=== PATIENT | female | born 1975 | race Caucasian/White ===

== ENCOUNTER 2020-09-23 11:24 | Outpatient (REF) | payer OTHER, SELFPAY ==
--- NOTE | ~2020-09-23 | US_ITS ---
EXAMINATION: US RETROPERITONEAL LIMITED (RENAL ONLY) CLINICAL INFORMATION: Unspecified abdominal pain. COMPARISON: X-ray abdomen 02/24/2006 (report only). TECHNIQUE: Real-time imaging of the kidneys. FINDINGS: RIGHT KIDNEY: 12.3 x 5.0 x 4.9 cm (SAG x AP x TRV). The kidney is normal in size, contour, and echogenicity. Renal cortical thickness is normal. No focal parenchymal lesions seen. There is an extrarenal pelvis. There are several echogenic stones visualized. 1. A lower pole echogenic stone measuring 1.1 x 0.8 cm. 2. Midpole stone measuring 0.2 x 0.2 cm. 3. Lower pole echogenic stone measuring 0.2 x 0.1 cm. 4. Lower pole echogenic stone measuring 0.3 x 0.3 cm. LEFT KIDNEY: 11.8 x 5.6 x 4.8 cm (SAG x AP x TRV). The kidney is normal in size, contour, and echogenicity. Renal cortical thickness is normal. No calculi or focal parenchymal lesions. No hydronephrosis. US/US renal BI IMPRESSION: Nonobstructive 4 echogenic stones in the right kidney with an extrarenal right kidney pelvis. Unremarkable left kidney.
== END 2020-09-23 11:25 | disposition home or self-care (01) ==
LOC: HO.US 11:24
PROVIDERS: PCP Internal Medicine; Visit Provider Internal Medicine
DX: R10.9 Unspecified abdominal pain (principal)
CPT/HCPCS: 76775

== ENCOUNTER 2022-10-26 09:44 | Outpatient (REF) | payer OTHER, SELFPAY ==
[2022-10-26 09:55] LABS: MANUAL DIFF FLAG NO
[2022-10-26 10:04] LABS: Basophils Absolute Auto 0.1 X10*3/uL (0.0-0.2); Basophils Percent Auto 0.7 % (0-2); Eosinophils Absolute Auto 0.4 X10*3/uL (0.0-0.4); Eosinophils Percent Auto 4.1 % (0-4); Hematocrit 39.9 % (37.0-47.0); Hemoglobin 12.9 g/dl (12.0-16.0); Imm Gran Abs Auto 0.02 X10*3/uL (0.00-0.03); Imm Gran Pct Auto 0.2 % (0.0-0.4); Lymphocytes Percent Auto 21.5 % (20-40); Mean Corpuscular HGB Conc 32.3 g/dl (31.0-35.0); Mean Corpuscular Hemoglobin 27.3 pg (27.0-33.0); Mean Corpuscular Volume 84.4 fL (80.0-98.0); Mean Platelet Volume 9.5 fL (9.4-12.3); Monocytes Absolute Auto 0.5 X10*3/uL (0.1-1.2); Monocytes Percent Auto 5.6 % (2-11); Neutrophils Absolute Auto 6.5 x10*3/uL (2.0-8.3); Neutrophils Percent Auto 67.9 % (45-73); Platelet Count 326 X10*3/uL (160-400); Red Blood Count 4.73 X10*6/uL (4.20-5.50); Red Cell Distribution Width 13.1 % (11.0-16.0); White Blood Count 9.5 X10*3/uL (4.8-10.8)
[2022-10-26 10:44] LABS: Alanine Aminotransferase 11 U/L (0-31); Albumin Level 4.4 g/dL (3.5-5.0); Alkaline Phosphatase 115 U/L (39-117); Anion Gap 13 (12-20); Aspartate Amino Transferase 15 U/L (5-31); Bilirubin Total 0.6 mg/dL (0.0-1.0); Blood Urea Nitrogen 14 mg/dL (9-16); Calcium 9.2 mg/dL (8.4-10.2); Carbon Dioxide 28 mmol/L (22-29); Chloride 104 mmol/L (96-108); Cholesterol 169 mg/dL; Estimated Glomerular Filt Rate > 60; Glucose Fasting 95 mg/dL (60-99); HDL Cholesterol 47 mg/dL; LDL Cholesterol Calculated 105 mg/dl; Potassium 4.1 mmol/L (3.3-5.1); Sodium 141 mmol/L (135-145); Total Protein 7.3 g/dL (6.5-8.0); Triglycerides 85 mg/dL
[2022-10-26 10:54] LABS: Thyroid Stimulating Hormone 1.46 uIU/mL (0.32-4.0)
== END 2022-10-26 09:45 | disposition home or self-care (01) ==
LOC: HO.LAB 09:44
PROVIDERS: PCP Internal Medicine; Visit Provider Internal Medicine
DX: D64.9 Anemia, unspecified (principal); E03.9 Hypothyroidism, unspecified; N28.9 Disorder of kidney and ureter, unspecified; E78.5 Hyperlipidemia, unspecified
CPT/HCPCS: 36415; 80053; 80061; 84443; 85025

== ENCOUNTER 2023-10-28 12:57 | Outpatient (AMB) | payer OTHER, SELFPAY ==
[2023-10-28 13:01] VITALS: BP 142/74; PULSE 75; O2SAT 94; BMI 32.9
--- NOTE | 2023-10-28 13:01 | A.OFFPC_ITS ---
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 Social Responsibility: Not Required per policy Accompanied by: Self / Same As Patient Allergies benzonatate Allergy (Unknown, Verified 10/28/23 13:01) unknown Medication List - Last Reconciled 10/28/23 by Rikki Lockwood MD albuterol sulfate 90 mcg/actuation 2 puffs PO Q4-6H PRN cetirizine (Zyrtec) 10 mg PO DAILY PRN sumatriptan succinate (Imitrex) 25 mg PO Q2-4H PRN 30 days Tobacco use date assessed: 10/28/23 Dental Screening Dental Screen Date: 10/28/23 Did you have a dental visit in the last 12 months?: Yes Did you have a dental problem in the last 6 months where you did not have access to dental care?: No Was dental information given to patient?: Patient has dentist HPI Annual exam - due for Moro/cervical screenings HPI Details mild asthma and migraine headaches; controlled PFSH Medical History (Updated 10/16/21 @ 10:20 by Rikki Lockwood MD) Obesity Surgical History History of lithotripsy Family History (Updated 10/28/23 @ 13:02 by CORA Yadav) Father No problems noted. Mother No problems noted. Maternal Grandfather Prostate cancer Paternal Grandfather Lung cancer Social History Housing: House Alcohol intake: current Alcohol intake frequency: a few times a week Patient Tobacco Use Status: Never used Tobacco Tobacco use type: Cigarette e-Cigarette/Vaping Use: Never Used Second Hand Smoke Exposure: No service: No Current occupational status: employed Cognitive needs: No Hearing needs: No Vision needs: No Questionnaire PHQ-9 Over the last 2 weeks, how often have you been bothered by any of the following problems? 1. Little interest or pleasure in doing things: not at all 2. Feeling down, depressed, or hopeless: not at all 3. Trouble falling or staying asleep, or sleeping too much: not at all 4. Feeling tired or having little energy: not at all 5. Poor appetite or overeating: not at all 6. Feeling bad about yourself - or that you are a failure or have let yourself or your family down: not at all 7. Trouble concentrating on things, such as reading the newspaper or watching television: not at all 8. Moving or speaking so slowly that other people could have noticed. Or the opposite - being so fidgety or restless that you have been moving around a lot more than usual: not at all 9. Thoughts that you would be better off or of hurting yourself in some way: not at all Total score: 0 Depression Screening Interpretation: Negative Depression Screening Done: Yes 34193 - PHQ-9 Billing: Yes Source: Developed by Drs. Fer Veras, Radha Ram, Luis Daniel Lawrence and colleagues, with an educational radha from [employer]. Thrive Questionnaire Date Thrive assessed: 10/28/23 I am a: Patient What is your living situation today?: I have a steady place to live Within the past 12 months, did the food you bought not last and you didn't have the money to get more?: Never true Within the past 12 months, did you worry whether your food would run out before you got money to buy more?: Never true Do you have trouble paying for medicines?: No Do you have trouble getting transportation to medical appointments?: No Do you have trouble paying your heating and electricity bill?: No Do you have trouble taking care of your child, family member or friend?: No Do you have trouble with day-to-day activities such as bathing, preparing meals, shopping, managing finances, etc.?: No Are you currently unemployed and looking for a job?: No Are you interested in more education?: No Please select the resources that you would like help with: None THRIVE Score: 0 AUDIT C Alcohol Use Questionnaire (AUDIT-C) 1. How often do you have a drink containing alcohol?: 2-4 times a month 2. How many drinks containing alcohol do you have on a typical day when you are drinking?: 1 or 2 3. How often do you have six or more drinks on one occasion?: Never Total Score: 2 Score Reviewed/Action Taken: Yes RICHIE-7 AMB Questionnaire RICHIE-7 Date RICHIE - 7 assessed: 10/28/23 Feeling nervous, anxious, or on edge: 0 = Not at all Not being able to stop or control worryin = Not at all Worrying too much about different things: 0 = Not at all Trouble relaxin = Not at all Being so restless that it is hard to sit still: 0 = Not at all Becoming easily annoyed or irritable: 0 = Not at all Feeling afraid as if something awful might happen: 0 = Not at all Total RICHIE-7 score (0-4 normal; 5-9 mild; 10-14 moderate; 15-21 severe): 0 Source: Developed by Drs. Fer Veras, Radha aRm, Luis Daniel Lawrence and colleagues, with an educational radha from [employer]. RICHIE-7 Assessment Billing RICHIE-7 Assessment Tool: RICHIE-7 Assessment 91232 Review of Systems Const Denies chills, Denies fatigue, Denies headache(s) and Denies weight loss Eyes Denies change in vision, Denies diplopia and Denies eye pain ENT Denies vertigo, Denies dizziness, Denies headache(s) and Denies nasal discharge Card Denies chest pain, Denies rapid heart rate and Denies dyspnea on exertion Resp Denies chest congestion, Denies cough, Denies pain with cough and Denies dyspnea on exertion GI Denies abdominal pain, Denies hematochezia and Denies change in bowel habits Musc Denies myalgias, Denies arthralgias and Denies joint swelling Skin/Breast Denies lesions and Denies unusual bruising Neuro Denies vertigo, Denies dizziness, Denies headache(s) and Denies focal weakness Endo Denies fatigue Physical exam (Primary Care) Vital Signs: Last Vital Signs Pulse 75 10/28/23 13:01 BP 142/74 H 10/28/23 13:01 Pulse Ox 94 10/28/23 13:01 Oxygen Delivery Method Room Air 10/28/23 13:01 BMI result Body Mass Index 32.9 Tobacco/Smoking Status: Tobacco use Status Tobacco use date assessed 10/28/23 10/28/23 13:06 Patient Tobacco Use Status Never used Tobacco 10/28/23 13:06 Tobacco use type Cigarette 10/28/23 13:06 e-Cigarette/Vaping Use Never Used 10/28/23 13:06 PHQ-9: PHQ-9 Score PHQ-9: Total score 0 10/28/23 13:06 Depression Screening Interpretation: Negative Thrive Assessment: Date of Thrive Assessment Date Thrive assessed 10/28/23 10/28/23 13:06 Const General: cooperative, healthy appearing and no acute distress Orientation/consciousness: oriented to person, oriented to place and oriented to time HENMT Head: Yes normal to inspection, Yes normocephalic and Yes atraumatic Mouth: Normal oral and palatal mucosa present and tongue normal Throat: Yes posterior oropharynx normal and Yes uvula midline Eyes General: appearance normal, both eyes and all related structures Neck Neck: Yes normal visual inspection, Yes full ROM and Yes no lymphadenopathy Thyroid: Thyroid normal Carotids: normal carotid upstroke Chest Chest palpation & inspection: normal inspection of the chest Resp Effort & Inspection: normal respiratory effort and able to speak in complete sentences Auscultation: clear to auscultation bilaterally Cardio Jugular venous distension: no JVD Palpation: normal PMI Rate: regular rate Rhythm: regular rhythm Heart sounds: S1 normal heart sound present and S2 normal heart sound present GI Inspection: Yes normal to inspection Palpation (GI): Soft to palpation and No hepatosplenomegaly present Auscultation: normal bowel sounds General: Yes no CVA tenderness Back/Spine/Pelvis Back: no CVA tenderness Skin General skin exam: no rashes or lesions noted Neuro General: oriented to person, oriented to place and oriented to time Extrem General: Yes normal to inspection and Yes full ROM Assessment and Plan Assessment & Plan (1) Physical exam: Code(s): Z00.00 - Encounter for general adult medical examination without abnormal findings Plan: labs; refuses colooscopy (2) Migraines: Code(s): G43.909 - Migraine, unspecified, not intractable, without status migrainosus Qualifiers: Migraine type: without aura Status migrainosus presence: without status migrainosus Intractability: not intractable Qualified Code(s): G43.009 - Migraine without aura, not intractable, without status migrainosus Plan: stable; same rx (3) Asthma: Code(s): J45.909 - Unspecified asthma, uncomplicated Plan: stable; same rx Orders: Orders Lipid Panel Today E78.5 - Hyperlipidemia, unspecified Complete Blood Count Auto Diff Today D64.9 - Anemia, unspecified Thyroid Stimulating Hormone Today E03.9 - Hypothyroidism, unspecified Comprehensive [place]. Panel Fast Today N28.9 - Disorder of kidney and ureter, unspecified Medications: Refilled albuterol sulfate 90 mcg/actuation 2 puffs PO Q4-6H PRN 8.5 grams 0RF for wheezing Coding Level of Care Code Est Pt Prev Care 40-64y(84699) Diagnoses Physical exam Z00.00 Migraine without aura and without status migrainosus, not intractable G43.009 Migraine type: without aura Status migrainosus presence: without status migrainosus Intractability: not intractable Asthma J45.909 Additional Codes RICHIE-7 Assessment Billing - RICHIE-7 Assessment Tool: RICHIE-7 Assessment 25792 ([id number])
== END 2023-10-28 13:33 | disposition home or self-care (01) ==
PROVIDERS: Visit Provider Internal Medicine
DX: Z00.00 Encounter for general adult medical examination without abnormal findings (principal); G43.009 Migraine without aura, not intractable, without status migrainosus; J45.909 Unspecified asthma, uncomplicated
CPT/HCPCS: 99396

== ENCOUNTER 2024-10-30 14:27 | Outpatient (AMB) | payer OTHER, SELFPAY ==
[2024-10-30 14:37] VITALS: BP 162/60; PULSE 74; RESP 16; TEMP 36.9; O2SAT 98; BMI 33.0
--- NOTE | 2024-10-30 14:37 | A.OFFPC_ITS ---
Vital Signs 10/30/24 14:37 Height 5 ft 2 in Weight 180 lb 6.4 oz BMI 33.0 BP 162/60 H Blood Pressure Location Lt brachial Position Sitting Respiration 16 Pulse 74 Pulse Source Pulse Oximeter Temp 98.5 F Temp Source Oral Pulse Oximetry (%) 98 Oxygen Delivery Method Room Air Intake Visit Reasons: TORIBIO DR Lockwood/[employer] As[employer]er Required: No Accompanied by: Self / Same As Patient Allergies benzonatate Allergy (Unknown, Verified 10/30/24 14:55) unknown Medication List - Last Reconciled 10/30/24 by DMITRIY Gimenez albuterol sulfate 90 mcg/actuation 2 puffs PO Q4-6H PRN cetirizine (Zyrtec) 10 mg PO DAILY PRN sumatriptan succinate (Imitrex) 25 mg PO Q2-4H PRN 30 days Tobacco use date assessed: 10/30/24 Dental Screening Dental Screen Date: 10/30/24 Did you have a dental visit in the last 12 months?: Yes Did you have a dental problem in the last 6 months where you did not have access to dental care?: No Was dental information given to patient?: Patient has dentist HPI TORIBIO DR Lockwood/LILY HPI Details The patient is a 49-year-old female with significant past medical history of asthma, obesity, high blood pressure and migraines The patient is presenting for transition of care from Dr. Lockwood who retired Patient reports that her migraines are triggered by hormone fluctuation, her period weeks are rough and any changes in the weather as well The patient blood pressure was elevated in office. Per patient, her blood pressure is all over the place and goes from high to low intermittently. The patient also reports that she has a strong family history of heart disease She reports that her dad had a heart attack that he has survived, before turning 51 years old The patient is denying shortness of breath, chest pain, heart palpitation or dizziness Discussed with the patient-due to her strong family history of heart disease, she should have a stress test done. The patient contemplated for a while and then finally said yes [facility] Medical History (Updated 11/04/24 @ 22:51 by DMITRIY Gimenez) Family history of heart disease Asthma Migraines Obesity Surgical History History of lithotripsy Family History Father No problems noted. Mother No problems noted. Maternal Grandfather Prostate cancer Paternal Grandfather Lung cancer Social History Housing: House Alcohol intake: current Alcohol intake frequency: a few times a week Patient Tobacco Use Status: Never used Tobacco Tobacco use type: Cigarette e-Cigarette/Vaping Use: Never Used Second Hand Smoke Exposure: No service: No Current occupational status: employed Cognitive needs: No Hearing needs: No Vision needs: Yes (Contact lenses) Questionnaire PHQ-9 Over the last 2 weeks, how often have you been bothered by any of the following problems? 1. Little interest or pleasure in doing things: not at all 2. Feeling down, depressed, or hopeless: not at all 3. Trouble falling or staying asleep, or sleeping too much: not at all 4. Feeling tired or having little energy: not at all 5. Poor appetite or overeating: not at all 6. Feeling bad about yourself - or that you are a failure or have let yourself or your family down: not at all 7. Trouble concentrating on things, such as reading the newspaper or watching television: not at all 8. Moving or speaking so slowly that other people could have noticed. Or the opposite - being so fidgety or restless that you have been moving around a lot more than usual: not at all 9. Thoughts that you would be better off or of hurting yourself in some way: not at all Total score: 0 Depression Screening Interpretation: Negative Depression Screening Done: Yes 43946 - PHQ-9 Billing: Yes Source: Developed by Drs. Fer Veras, Radha Ram, Luis Daniel Lawrence and colleagues, with an educational radha from [employer]. Thrive Questionnaire Date Thrive assessed: 10/30/24 I am a: Patient What is your living situation today?: I have a steady place to live Within the past 12 months, did the food you bought not last and you didn't have the money to get more?: Never true Within the past 12 months, did you worry whether your food would run out before you got money to buy more?: Never true Do you have trouble paying for medicines?: No Do you have trouble getting transportation to medical appointments?: No Do you have trouble paying your heating and electricity bill?: No Do you have trouble taking care of your child, family member or friend?: No Do you have trouble with day-to-day activities such as bathing, preparing meals, shopping, managing finances, etc.?: No Are you currently unemployed and looking for a job?: No Are you interested in more education?: No Please select the resources that you would like help with: None Currently or been in a relationship where the following occur: No concerns reported THRIVE Score: 0 AUDIT C Alcohol Use Questionnaire (AUDIT-C) 1. How often do you have a drink containing alcohol?: Monthly or less 2. How many drinks containing alcohol do you have on a typical day when you are drinking?: 1 or 2 3. How often do you have six or more drinks on one occasion?: Never Total Score: 1 Score Reviewed/Action Taken: Yes RICHIE-7 AMB Questionnaire RICHIE-7 Date RICHIE - 7 assessed: 10/30/24 Feeling nervous, anxious, or on edge: 0 = Not at all Not being able to stop or control worryin = Not at all Worrying too much about different things: 0 = Not at all Trouble relaxin = Not at all Being so restless that it is hard to sit still: 0 = Not at all Becoming easily annoyed or irritable: 0 = Not at all Feeling afraid as if something awful might happen: 0 = Not at all Total RICHIE-7 score (0-4 normal; 5-9 mild; 10-14 moderate; 15-21 severe): 0 Source: Developed by Drs. Fer Veras, Radha Ram, Luis Daniel Lawrence and colleagues, with an educational radha from [employer]. RICHIE-7 Assessment Billing RICHIE-7 Assessment Tool: RICHIE-7 Assessment 33652 Review of Systems Const Reports headache(s) (Intermittent migraines-hormonal) Eyes Denies loss of vision ENT Denies vertigo, Denies dizziness, Reports headache(s) (Intermittent migraines- hormonal) and Denies sore throat Card Denies chest pain, Denies leg edema and Denies lightheadedness Resp Denies cough, Denies hemoptysis and Denies wheezing GI Denies abdominal pain, Denies melena, Denies constipation, Denies diarrhea and Denies vomiting Neuro Denies Abnormal speech present, Denies vertigo, Denies dizziness, Reports headache(s) (Intermittent migraines-hormonal) and Denies loss of vision Aller/Immun Denies wheezing Physical exam (Primary Care) Vital Signs: Last Vital Signs Temp 98.5 F 10/30/24 14:37 Pulse 74 10/30/24 14:37 Resp 16 10/30/24 14:37 BP 162/60 H 10/30/24 14:37 Pulse Ox 98 10/30/24 14:37 Oxygen Delivery Method Room Air 10/30/24 14:37 BMI result Body Mass Index 33.0 Tobacco/Smoking Status: Tobacco use Status Tobacco use date assessed 10/30/24 10/30/24 14:49 Patient Tobacco Use Status Never used Tobacco 10/30/24 14:49 Tobacco use type Cigarette 10/30/24 14:49 e-Cigarette/Vaping Use Never Used 10/30/24 14:49 PHQ-9: PHQ-9 Score PHQ-9: Total score 0 10/30/24 17:37 Depression Screening Interpretation: Negative Thrive Assessment: Date of Thrive Assessment Date Thrive assessed 10/30/24 10/30/24 14:49 Currently or been in a relationship where the following occur: No concerns reported Const General: healthy appearing, no acute distress, alert and awake Nutritional Appearance: well nourished Orientation/consciousness: oriented to person, oriented to place and oriented to time HENMT Ears: external ears normal General nose exam: Normal external nose present Eyes Conjunctivae: conjunctivae normal Sclerae: sclerae normal Pupils: Equal, round and reactive pupils present Neck Neck: Yes no lymphadenopathy and Yes no JVD Thyroid: Thyroid normal Carotids: no bruits Resp Effort & Inspection: normal respiratory effort and not tachypneic Auscultation: no crackles, no rales, no rhonchi and no wheezes Cardio Rate: regular rate Rhythm: regular rhythm Heart sounds: no murmurs and normal S1 and S2 GI Palpation (GI): Soft to palpation, nontender, no hepatomegaly and no splenomegaly Auscultation: normal bowel sounds Neuro General: oriented to person, oriented to place, oriented to time and CN's II-XI intact bilaterally Cranial nerves: Yes Equal, round and reactive pupils present Speech: No Abnormal speech present Gait exam (Neuro): Normal gait present Motor exam (neuro): no tremor noted Extrem Right upper extremity: full ROM Left upper extremity: full ROM Right lower extremity: full ROM; no edema Left lower extremity: full ROM; no edema Psych Mental Status: mental status grossly normal Speech and movement: Normal speech and movement present Affect: normal affect Attitude: cooperative Thought process: Normal thought process present Coding Level of Care Code Est Pt Level 3 (57772) Diagnoses Hypertension, unspecified type I10 Hypertension type: unspecified Migraine without aura and without status migrainosus, not intractable G43.009 Migraine type: without aura Status migrainosus presence: without status migrainosus Intractability: not intractable Family history of heart disease Z82.49 Additional Codes RICHIE-7 Assessment Billing - RICHIE-7 Assessment Tool: RICHIE-7 Assessment 30610 ([id number]) PHQ-9 - 74729 - PHQ-9 Billing: Yes ([id number]) Time Spent (min) 29 Assessment & Plan Assessment & Plan (1) High blood pressure: Code(s): I10 - Essential (primary) hypertension Category: Medical Qualifiers: Hypertension type: unspecified Qualified Code(s): I10 - Essential (primary) hypertension Plan: Patient blood pressure 162/60, last year it was 142/74. Rechecked blood pressure remains elevated. Patient reports that her blood pressure fluctuates from high to low intermittently. Lisinopril 5 mg daily started. Encouraged the patient to monitor blood pressure in contact the office for any concerns. Discussed consuming a low-sodium diet. Patient to return in 6 weeks for evaluat ion (2) Migraines: Code(s): G43.909 - Migraine, unspecified, not intractable, without status migrainosus Category: Medical Qualifiers: Migraine type: without aura Status migrainosus presence: without status migrainosus Intractability: not intractable Qualified Code(s): G43.009 - Migraine without aura, not intractable, without status migrainosus Plan: Patient reports that her headaches are purely hormonal. Fluctuates with the weather and during her menses. Continue sumatriptan succinate 25 mg 2-4 hours p.r.n. as needed. Maintain adequate fluid hydration. Discussed with the patient about starting magnesium oxide 400 mg at bedtime and vitamin B2 400 mg daily OTC (3) Family history of heart disease: Code(s): Z82.49 - Family history of ischemic heart disease and other diseases of the circulatory system Category: Medical Plan: We will order a stress test Orders: Orders Complete Blood Count Auto Diff 10/30/24. - Encounter for general adult medical examination without abnormal findings Comprehensive [place]. Panel Fast 10/30/24 - Encounter for general adult medical examination without abnormal findings Lipid Panel 10/30/24. - Encounter for general adult medical examination without abnormal findings CA stress test Today I10 - Essential (primary) hypertension, Z82.49 - Family history of ischemic heart disease and other diseases of the circulatory system Vitamin D 25-OH Total 10/30/24 - Encounter for general adult medical examination without abnormal findings UA CC w/rflx Micro + Cult 10/30/24 - Encounter for general adult medical examination without abnormal findings TSH reflex Free T4 10/30/24 - Encounter for general adult medical examination without abnormal findings Medications: New lisinopril 5 mg PO DAILY 30 tabs 2RF I10 - Essential (primary) hypertension
== END 2024-10-30 15:28 | disposition home or self-care (01) ==
DX: I10 Essential (primary) hypertension (principal); G43.009 Migraine without aura, not intractable, without status migrainosus; Z82.49 Family history of ischemic heart disease and other diseases of the circulatory system

== ENCOUNTER → 2024-10-30 14:27 | Outpatient (BNVA) | payer OTHER, SELFPAY | DX: I10 Essential (primary) hypertension (principal); G43.009 Migraine without aura, not intractable, without status migrainosus; Z82.49 Family history of ischemic heart disease and other diseases of the circulatory system; Z79.899 Other long term (current) drug therapy | CPT/HCPCS: 96127 ==

== ENCOUNTER 2024-11-21 08:43 | Outpatient (REF) | payer OTHER, SELFPAY ==
[2024-11-21 09:01] LABS: MANUAL DIFF FLAG NO
[2024-11-21 09:36] LABS: Basophils Absolute Auto 0.1 X10*3/uL (0.0-0.2); Basophils Percent Auto 0.7 % (0-2); Eosinophils Absolute Auto 0.5 X10*3/uL (0.0-0.4); Eosinophils Percent Auto 4.8 % (0-4); Hematocrit 41.3 % (37.0-47.0); Hemoglobin 13.4 g/dl (12.0-16.0); Imm Gran Abs Auto 0.03 X10*3/uL (0.00-0.03); Imm Gran Pct Auto 0.3 % (0.0-0.4); Lymphocytes Absolute Auto 2.6 X10*3/uL (1.2-4.9); Lymphocytes Percent Auto 26.9 % (20-40); Mean Corpuscular HGB Conc 32.4 g/dl (31.0-35.0); Mean Corpuscular Hemoglobin 27.1 pg (27.0-33.0); Mean Corpuscular Volume 83.6 fL (80.0-98.0); Mean Platelet Volume 9.9 fL (9.4-12.3); Monocytes Absolute Auto 0.7 X10*3/uL (0.1-1.2); Monocytes Percent Auto 6.9 % (2-11); Neutrophils Absolute Auto 5.8 x10*3/uL (2.0-8.3); Neutrophils Percent Auto 60.4 % (45-73); Platelet Count 319 X10*3/uL (160-400); Red Blood Count 4.94 X10*6/uL (4.20-5.50); Red Cell Distribution Width 13.7 % (11.0-16.0); White Blood Count 9.5 X10*3/uL (4.8-10.8)
[2024-11-21 09:39] LABS: Appearance Urine Clear; Color Urine Yellow; Glucose Urine UA Negative (Negative); Leukocyte Esterase Urine Trace (Negative); Nitrite Urine Negative (Negative); UMIC TRIGGER UACC YES; Urine Blood Negative (Negative); Urine Ketones 15 mg/dL (Negative); Urine Protein Trace mg/dL (Neg-Trace)
[2024-11-21 09:42] LABS: Bacteria Urine None Seen (None Seen); Hyaline Casts Urine 0-2 /LPF (0-2); RBC Urine 0-2 /HPF (0-2); Squamous Epithelial Cell Urine 0-2 /HPF (0-2); WBC Urine 0-5 /HPF (0-5)
[2024-11-21 10:34] LABS: Alanine Aminotransferase 21 U/L (0-31); Albumin Level 4.3 g/dL (3.5-5.0); Alkaline Phosphatase 98 U/L (39-117); Anion Gap 13 (12-20); Aspartate Amino Transferase 21 U/L (5-31); Bilirubin Total 0.5 mg/dL (0.0-1.0); Blood Urea Nitrogen 14 mg/dL (9-16); Calcium 9.5 mg/dL (8.4-10.2); Carbon Dioxide 26 mmol/L (22-29); Chloride 104 mmol/L (96-108); Cholesterol 169 mg/dL (<200); Estimated Glomerular Filt Rate > 60; Glucose Fasting 97 mg/dL (60-99); HDL Cholesterol 59 mg/dL (>40); LDL Cholesterol Calculated 94 mg/dL (<100); Potassium 3.8 mmol/L (3.3-5.1); Sodium 139 mmol/L (135-145); Total Protein 7.5 g/dL (6.5-8.0); Triglycerides 81 mg/dL (<150)
[2024-11-21 10:37] LABS: TSH reflex Free T4 1.06 uIU/mL (0.32-4.0); Vitamin D 25-OH Total 29.5 ng/mL (>30)
== END 2024-11-21 08:44 | disposition home or self-care (01) ==
LOC: HO.LAB 08:43
DX: Z00.00 Encounter for general adult medical examination without abnormal findings (principal)
CPT/HCPCS: 36415; 80053; 80061; 81001; 82306; 84443; 85025

== ENCOUNTER → 2024-11-22 09:29 | Outpatient (REF) | payer OTHER, SELFPAY ==
--- NOTE | 2024-11-22 09:31 | CA_ITS ---
Acquisition Time: 2024-11-22 09:38:43 Total Exercise Time: 00:05:39 Test Indications: HTN, CAD Medications: SEE H&P Protocol: DANIEL Max HR: 155 BPM 90% of Pred: 172 BPM Max BP: 190/98 mmHG Max Work Load: 7.0 METS Exercise stress test with exercise 5 mins 39 secs of Daniel Protocol, achieving 88% MPHr, with reports of mild SOB, no chest pain, without any arrythmias, with normotensive response to exercise- baseline BP 130/108. Without EKG changes meeting criteria for ischemia. In recovery, pt's breathing returned to baseline. Test reviewed with Dr. Sethi. PS- Pt states her BP at home is still elevated on Lisinopril. Referred By: Alexandr Zhong Electronically Signed By: Jason Shahid
== END ==
LOC: HO.CARD 09:29
DX: I10 Essential (primary) hypertension (principal); Z82.49 Family history of ischemic heart disease and other diseases of the circulatory system
CPT/HCPCS: 93017

== ENCOUNTER → 2024-11-22 09:31 | Outpatient (BNV) | payer OTHER, SELFPAY | DX: R06.02 Shortness of breath (principal) | CPT/HCPCS: 93016; 93018 ==

== ENCOUNTER 2024-12-18 11:37 | Outpatient (AMB) | payer OTHER, SELFPAY ==
[2024-12-18 11:41] VITALS: BP 124/80; PULSE 83; O2SAT 97; BMI 33.2
--- NOTE | 2024-12-18 11:41 | A.OFFPC_ITS ---
Vital Signs 12/18/24 11:41 Height 5 ft 2 in Weight 181 lb 6 oz BMI 33.2 BP 124/80 Blood Pressure Location Lt brachial Position Sitting Pulse 83 Pulse Source Pulse Oximeter Pulse Oximetry (%) 97 Oxygen Delivery Method Room Air Intake Visit Reasons: high blood pressure - see comments Company Driver Required: No Accompanied by: Self / Same As Patient Allergies benzonatate Allergy (Unknown, Verified 12/18/24 12:16) unknown Medication List - Last Reconciled 12/18/24 by DMITRIY Gimenez albuterol sulfate 90 mcg/actuation 2 puffs PO Q4-6H PRN cetirizine (Zyrtec) 10 mg PO DAILY PRN lisinopril 5 mg PO DAILY sumatriptan succinate (Imitrex) 25 mg PO Q2-4H PRN 30 days Tobacco use date assessed: 12/18/24 Dental Screening Dental Screen Date: 12/18/24 Did you have a dental visit in the last 12 months?: Yes Did you have a dental problem in the last 6 months where you did not have access to dental care?: No Was dental information given to patient?: Patient has dentist HPI high blood pressure - see comments HPI Details The patient is a 49-year-old female presenting with ear congestion and hypertension management needs. She reports previous successful control of blood pressure with Lisinopril 10 mg dosage. Originally, the patient was started on lisinopril 5 mg with insufficient effect. The patient is requesting to get her ears checked because she is having post-flight ear discomfort, which is not uncommon for her. She has taken he usual regimen of Afrin for 3 days without any relief. Mild ache and crackling are noted in the right ear upon yawning, with a historical susceptibility to ear infections under similar circumstances. [facility] Medical History (Updated 12/19/24 @ 00:33 by DMITRIY Gimenez) Family history of heart disease Asthma Migraines Obesity Surgical History History of lithotripsy Family History Father No problems noted. Mother No problems noted. Maternal Grandfather Prostate cancer Paternal Grandfather Lung cancer Social History (Reviewed 12/19/24 @ 00:26 by JUAN LUIS Gimenez Housing: House Alcohol intake: current Alcohol intake frequency: a few times a week Patient Tobacco Use Status: Never used Tobacco Tobacco use type: Cigarette e-Cigarette/Vaping Use: Never Used Second Hand Smoke Exposure: No service: No Current occupational status: employed Cognitive needs: No Hearing needs: No Vision needs: Yes (Contact lenses) Questionnaire PHQ-9 Over the last 2 weeks, how often have you been bothered by any of the following problems? 1. Little interest or pleasure in doing things: not at all 2. Feeling down, depressed, or hopeless: not at all 3. Trouble falling or staying asleep, or sleeping too much: not at all 4. Feeling tired or having little energy: not at all 5. Poor appetite or overeating: not at all 6. Feeling bad about yourself - or that you are a failure or have let yourself or your family down: not at all 7. Trouble concentrating on things, such as reading the newspaper or watching television: not at all 8. Moving or speaking so slowly that other people could have noticed. Or the opposite - being so fidgety or restless that you have been moving around a lot more than usual: not at all 9. Thoughts that you would be better off or of hurting yourself in some way: not at all Total score: 0 Source: Developed by Drs. Fer Veras, Radha Ram, Luis Daniel Lawrence and colleagues, with an educational radha from [employer]. Thrive Questionnaire Date Thrive assessed: 12/18/24 I am a: Patient What is your living situation today?: I have a steady place to live Within the past 12 months, did the food you bought not last and you didn't have the money to get more?: Never true Within the past 12 months, did you worry whether your food would run out before you got money to buy more?: Never true Do you have trouble paying for medicines?: No Do you have trouble getting transportation to medical appointments?: No Do you have trouble paying your heating and electricity bill?: No Do you have trouble taking care of your child, family member or friend?: No Do you have trouble with day-to-day activities such as bathing, preparing meals, shopping, managing finances, etc.?: No Are you currently unemployed and looking for a job?: No Are you interested in more education?: No Please select the resources that you would like help with: None Currently or been in a relationship where the following occur: No concerns reported THRIVE Score: 0 AUDIT C Alcohol Use Questionnaire (AUDIT-C) 1. How often do you have a drink containing alcohol?: 2-4 times a month 2. How many drinks containing alcohol do you have on a typical day when you are drinking?: 1 or 2 3. How often do you have six or more drinks on one occasion?: Less than monthly Total Score: 3 RICHIE-7 AMB Questionnaire RICHIE-7 Date RICHIE - 7 assessed: 12/18/24 Feeling nervous, anxious, or on edge: 0 = Not at all Not being able to stop or control worryin = Not at all Worrying too much about different things: 0 = Not at all Trouble relaxin = Not at all Being so restless that it is hard to sit still: 0 = Not at all Becoming easily annoyed or irritable: 0 = Not at all Feeling afraid as if something awful might happen: 0 = Not at all Total RICHIE-7 score (0-4 normal; 5-9 mild; 10-14 moderate; 15-21 severe): 0 Source: Developed by Drs. Fer Veras, Radha Ram, Luis Daniel Lawrence and colleagues, with an educational radha from [employer]. Review of Systems Const Denies headache(s) Eyes Denies loss of vision ENT Denies vertigo, Denies dizziness, Reports otalgia (mild especially in right), Denies headache(s), Denies sore throat and Reports other (Increased pressure in ears with popping sounds, mostly right) Card Denies chest pain, Denies leg edema and Denies lightheadedness Resp Denies cough, Denies hemoptysis and Denies wheezing GI Denies abdominal pain, Denies melena, Denies constipation, Denies diarrhea and Denies vomiting Denies urinary frequency, Denies dysuria and Denies urinary urgency Neuro Denies Abnormal speech present, Denies vertigo, Denies dizziness, Denies headache(s) and Denies loss of vision Rafa/Lymph Denies easy bleeding and Denies easy bruising Aller/Immun Denies wheezing Physical exam (Primary Care) Vital Signs: Last Vital Signs Pulse 83 12/18/24 11:41 BP 124/80 12/18/24 11:41 Pulse Ox 97 12/18/24 11:41 Oxygen Delivery Method Room Air 12/18/24 11:41 BMI result Body Mass Index 33.2 Tobacco/Smoking Status: Tobacco use Status Tobacco use date assessed 12/18/24 12/18/24 11:46 Patient Tobacco Use Status Never used Tobacco 12/18/24 11:46 Tobacco use type Cigarette 12/18/24 11:46 e-Cigarette/Vaping Use Never Used 12/18/24 11:46 PHQ-9: PHQ-9 Score PHQ-9: Total score 0 12/19/24 00:21 Thrive Assessment: Date of Thrive Assessment Date Thrive assessed 12/18/24 12/18/24 11:46 Currently or been in a relationship where the following occur: No concerns reported Const General: healthy appearing, no acute distress, alert and awake Nutritional Appearance: well nourished Orientation/consciousness: oriented to person, oriented to place and oriented to time HENMT Ears: TM abnormal bulging, dull on the right (scant amount of dried up blood), on the left (left with dried up blood) and bilateral and with loss of landmarks General nose exam: Normal nasal mucous membranes and turbinates present Eyes Conjunctivae: conjunctivae normal Sclerae: sclerae normal Neck Neck: Yes no lymphadenopathy and Yes no JVD Thyroid: Thyroid normal Carotids: no bruits Resp Effort & Inspection: normal respiratory effort and not tachypneic Auscultation: no crackles, no rales, no rhonchi and no wheezes Cardio Rate: regular rate Rhythm: regular rhythm Heart sounds: no murmurs and normal S1 and S2 GI Palpation (GI): Soft to palpation, nontender, no hepatomegaly and no splenomegaly Auscultation: normal bowel sounds Neuro General: oriented to person, oriented to place and oriented to time Speech: No Abnormal speech present Gait exam (Neuro): Normal gait present Motor exam (neuro): no tremor noted Extrem Right upper extremity: full ROM Left upper extremity: full ROM Right lower extremity: full ROM; no edema Left lower extremity: full ROM; no edema Results Reviewed Results Reviewed: Laboratory Tests 11/21/24 11/21/24 08:52 09:00 WBC 9.5 RBC 4.94 Hgb 13.4 Hct 41.3 MCV 83.6 MCH 27.1 MCHC 32.4 RDW 13.7 Plt Count 319 Sodium 139 Potassium 3.8 Chloride 104 Carbon Dioxide 26 Anion Gap 13 BUN 14 Creatinine 0.69 Estimated GFR > 60 Fasting Glucose 97 Calcium 9.5 Total Bilirubin 0.5 AST 21 ALT 21 Alkaline Phosphatase 98 Total Protein 7.5 Albumin 4.3 Triglycerides 81 Cholesterol 169 LDL Cholesterol, Calc 94 HDL Cholesterol 59 25-OH Vitamin D Total 29.5 L TSH 1.06 Urine Color Yellow Urine Appearance Clear Urine pH 6.0 Ur Specific [place] 1.020 Urine Protein Trace Urine Glucose (UA) Negative Urine Ketones 15 Urine Blood Negative Urine Nitrite Negative Ur Leukocyte Esterase Trace H Urine RBC 0-2 Urine WBC 0-5 Ur Squamous Epith Cells 0-2 Urine Bacteria None Seen Hyaline Casts 0-2 Coding Level of Care Code Est Pt Level 3 (69619) Diagnoses Acute otitis media, unspecified otitis media type H66.90 Chronicity: acute Otitis media type: unspecified Hypertension, unspecified type I10 Hypertension type: unspecified Time Spent (min) 32 Assessment & Plan Assessment & Plan (1) Otitis media: Code(s): H66.90 - Otitis media, unspecified, unspecified ear Category: Medical Qualifiers: Chronicity: acute Otitis media type: unspecified Qualified Code(s): H66.90 - Otitis media, unspecified, unspecified ear Plan: Augmentin 875-125 mg 1 tab b.i.d. x7 days ordered (2) High blood pressure: Code(s): I10 - Essential (primary) hypertension Category: Medical Qualifiers: Hypertension type: unspecified Qualified Code(s): I10 - Essential (primary) hypertension Plan: Blood pressure 124/80. Continue lisinopril 10 mg daily Reinforced a low-salt diet and activity as tolerated Medications: New lisinopril 10 mg PO DAILY 90 tabs 3RF amoxicillin-pot clavulanate 875-125 mg 1 tab PO BID 14 tabs 0RF 7 days H66.90 - Otitis media, unspecified, unspecified ear Discontinued lisinopril Discontinued Reason: Doctor's Order 5 mg PO DAILY 30 tabs 2RF I10 - Essential (primary) hypertension
== END 2024-12-18 12:39 | disposition home or self-care (01) ==
LOC: HO.HMCH 11:38
DX: H66.90 Otitis media, unspecified, unspecified ear (principal); I10 Essential (primary) hypertension

== ENCOUNTER 2025-04-22 11:00 | Outpatient (AMB) | payer OTHER, SELFPAY ==
[2025-04-22 11:05] VITALS: BP 134/82; PULSE 76; RESP 18; TEMP 36.3; O2SAT 96; BMI 32.8
--- NOTE | 2025-04-22 11:05 | MHC.OFFVIS ---
Vital Signs 04/22/25 11:05 Height 5 ft 2 in Weight 179 lb 4 oz BMI 32.8 BP 134/82 Blood Pressure Location Lt brachial Position Sitting Respiration 18 Pulse 76 Pulse Source Pulse Oximeter Temp 97.3 F Temp Source Temporal Artery Scan Pulse Oximetry (%) 96 Oxygen Delivery Method Room Air Intake Visit Reasons: Hypertension Sail Cutter Required: No Accompanied by: Self / Same As Patient Allergies benzonatate Allergy (Unknown, Verified 04/22/25 11:22) unknown Medication List - Last Reconciled 04/22/25 by DMITRIY Gimenez albuterol sulfate 90 mcg/actuation 2 puffs PO Q4-6H PRN cetirizine (Zyrtec) 10 mg PO DAILY PRN lisinopril 10 mg PO DAILY sumatriptan succinate (Imitrex) 25 mg PO Q2-4H PRN 30 days HPI HPI Hypertension: Details: The patient is a 50-year-old female presenting for follow appt for elevated blood pressure and headaches. The patient has a history of fluctuating blood pressure readings, initially recorded at 162/60 mmHg during her first visit. Lisinopril was increased to 10mg. Subsequent readings showed improvement to 124/80 mmHg, but recent measurements have increased to 140/80 mmHg, but dropped to 134/82 when rechecked. The patient is currently on antihypertensive medication and adheres to her treatment regimen. The patient reports experiencing headaches, which she describes as being consistent with her usual pattern. She has not reported any significant changes in the frequency or severity of these headaches. [facility] Medical History Family history of heart disease Asthma Migraines Obesity Surgical History History of lithotripsy Family History Father No problems noted. Mother No problems noted. Maternal Grandfather Prostate cancer Paternal Grandfather Lung cancer Social History Housing: House Alcohol intake: current Alcohol intake frequency: a few times a week Patient Tobacco Use Status: Never used Tobacco Tobacco use type: Cigarette e-Cigarette/Vaping Use: Never Used Second Hand Smoke Exposure: No service: No Current occupational status: employed Cognitive needs: No Hearing needs: No Vision needs: Yes (Contact lenses) Review of Systems Const Denies body aches, Denies chills, Denies fever(s), Reports headache(s) (on and off) and Denies poor appetite Eyes Reports no additional complaints ENT Denies dysphagia, Denies dizziness, Reports headache(s) (on and off) and Denies odynophagia Card Denies chest pain, Denies syncope, Denies edema, Denies irregular heart rhythm, Denies lightheadedness and Denies dyspnea Resp Denies cough and Denies dyspnea GI Denies abdominal pain, Denies constipation, Denies dysphagia, Denies diarrhea, Denies nausea, Denies odynophagia and Denies vomiting Reports no additional complaints Musc Reports no additional complaints and Denies abnormal gait Skin/Breast Reports system reviewed and no additional complaints, except as documented Neuro Denies abnormal gait, Denies dizziness, Denies syncope and Reports headache(s) (on and off) Psych Reports no additional complaints Physical Exam Vital Signs: Last Vital Signs Temp 97.3 F 04/22/25 11:05 Pulse 76 04/22/25 11:05 Resp 18 04/22/25 11:05 BP 140/80 H 04/22/25 11:05 Pulse Ox 96 04/22/25 11:05 Oxygen Delivery Method Room Air 04/22/25 11:05 BMI result Body Mass Index 32.8 Const General: cooperative, healthy appearing, comfortable and no acute distress Orientation/consciousness: patient oriented x3 HEENT Head: Yes normocephalic Ears: hearing grossly normal bilaterally General nose exam: Normal external nose present Eyes General: appearance normal, both eyes and all related structures Conjunctivae: conjunctivae normal Neck Neck: Yes full ROM and Yes no lymphadenopathy Resp Effort & Inspection: normal respiratory effort Auscultation: clear to auscultation bilaterally, no crackles, no rales, no rhonchi and no wheezes Cardio Rate: regular rate Rhythm: regular rhythm Skin General skin exam: no rashes or lesions noted Neuro General: patient oriented x3 and no focal motor deficits Cranial nerves: Yes Nystagmus not present Gait exam (Neuro): Normal gait present Motor exam (neuro): 5/5 motor strength present throughout Extrem General: Yes normal to inspection, Yes full ROM and No edema Psych Affect: normal affect Attitude: cooperative Insight: Good insight present (Psych) Judgement: Good judgement present (Psych) Assessment & Plan Assessment & Plan (1) High blood pressure: Code(s): I10 - Essential (primary) hypertension Category: Medical Qualifiers: Hypertension type: unspecified Qualified Code(s): I10 - Essential (primary) hypertension Plan: Blood pressure 134/82 Reinforced low-salt diet, limit caffeine and alcohol intake Continue lisinopril 10 mg daily (2) Migraines: Code(s): G43.909 - Migraine, unspecified, not intractable, without status migrainosus Category: Medical Qualifiers: Migraine type: without aura Status migrainosus presence: without status migrainosus Intractability: not intractable Qualified Code(s): G43.009 - Migraine without aura, not intractable, without status migrainosus Plan: Patient reports that her headaches are purely hormonal. Fluctuates with the weather and during her menses. Continue sumatriptan succinate 25 mg 2-4 hours p.r.n. as needed. Maintain adequate fluid hydration. Encouraged magnesium oxide 400 mg at bedtime and vitamin B2 400 mg daily OTC (3) Family history of heart disease: Code(s): Z82.49 - Family history of ischemic heart disease and other diseases of the circulatory system Category: Medical Plan: Stress test was ordered on previous visit that showed no ischemia or cardiac abnormalities with exertion. Plan Patient to return in 3 months Coding Level of Care Code Est Pt Level 3 (11040) Diagnoses Hypertension, unspecified type I10 Hypertension type: unspecified Migraine without aura and without status migrainosus, not intractable G43.009 Migraine type: without aura Status migrainosus presence: without status migrainosus Intractability: not intractable Family history of heart disease Z82.49 Time Spent (min) 33
== END 2025-04-22 11:31 | disposition home or self-care (01) ==
LOC: HO.HMCH 11:01
DX: I10 Essential (primary) hypertension (principal); G43.009 Migraine without aura, not intractable, without status migrainosus; Z82.49 Family history of ischemic heart disease and other diseases of the circulatory system

== ENCOUNTER 2025-07-23 13:56 | Outpatient (AMB) | payer OTHER, SELFPAY ==
--- NOTE | 2025-07-23 13:57 | MHC.PC.OV ---
Vital Signs 07/23/25 13:58 Height 5 ft 2 in Weight 181 lb 8 oz BMI 33.2 BP 148/82 H Blood Pressure Location Lt brachial Position Sitting Respiration 18 Pulse 82 Pulse Source Pulse Oximeter Temp Source Temporal Artery Scan Pulse Oximetry (%) 100 Oxygen Delivery Method Room Air Intake Visit Reasons: htn/migraines Freight Breaker Required: No Accompanied by: Self / Same As Patient Allergies benzonatate Allergy (Unknown, Verified 07/23/25 14:17) unknown Medication List - Last Reconciled 07/23/25 by DMITRIY Gimenez albuterol sulfate 90 mcg/actuation 2 puffs PO Q4-6H PRN cetirizine (Zyrtec) 10 mg PO DAILY PRN lisinopril 10 mg PO DAILY sumatriptan succinate (Imitrex) 25 mg PO Q2-4H PRN 30 days Tobacco use date assessed: 07/23/25 Dental Screening Dental Screen Date: 07/23/25 Did you have a dental visit in the last 12 months?: Yes Did you have a dental problem in the last 6 months where you did not have access to dental care?: No Was dental information given to patient?: Patient has dentist HPI htn/migraines HPI Details The patient is a 50-year-old female presenting for HTN, Migraine, asthma follow up Reports that she is doing okay overall her migraines are still cyclic but has been well-controlled Breathing has been good as well The patient blood pressure this above goal. She is currently on lisinopril 10 mg daily, she reports med compliance and denies any side effects The patient denies chest pain, shortness of breath, heart palpitation or dizziness Denies abdominal pain or change in bowel habits Denies any urinary issues [facility] Medical History (Updated 07/23/25 @ 14:51 by DMITRIY Gimenez) Family history of heart disease Asthma Migraines Obesity Surgical History History of lithotripsy Family History Father No problems noted. Mother No problems noted. Maternal Grandfather Prostate cancer Paternal Grandfather Lung cancer Social History (Reviewed 07/23/25 @ 14:45 by Alexandr Zhong, SENIOR VICE PRESIDENT AND CHIEF INFORMATION OFFICER-C) Housing: House Alcohol intake: current Alcohol intake frequency: a few times a week Patient Tobacco Use Status: Never used Tobacco Tobacco use type: Cigarette e-Cigarette/Vaping Use: Never Used Second Hand Smoke Exposure: No service: No Current occupational status: employed Cognitive needs: No Hearing needs: No Vision needs: Yes (Contact lenses) Questionnaire Thrive Questionnaire Date Thrive assessed: 07/23/25 I am a: Patient What is your living situation today?: I have a steady place to live Within the past 12 months, did the food you bought not last and you didn't have the money to get more?: Never true Within the past 12 months, did you worry whether your food would run out before you got money to buy more?: Never true Do you have trouble paying for medicines?: No Do you have trouble getting transportation to medical appointments?: No Do you have trouble paying your heating and electricity bill?: No Do you have trouble taking care of your child, family member or friend?: No Do you have trouble with day-to-day activities such as bathing, preparing meals, shopping, managing finances, etc.?: No Are you currently unemployed and looking for a job?: No Are you interested in more education?: No Currently or been in a relationship where the following occur: No concerns reported THRIVE Score: 0 RICHIE-7 AMB Questionnaire RICHIE-7 Date RICHIE - 7 assessed: 12/18/24 Source: Developed by Drs. Fer Veras, Radha Ram, Luis Daniel Lawrence and colleagues, with an educational radha from [employer]. Review of Systems Const Denies body aches, Denies chills, Denies fever(s), Reports headache(s) (on and off) and Denies poor appetite Eyes Reports no additional complaints ENT Denies dysphagia, Denies dizziness, Reports headache(s) (on and off) and Denies odynophagia Card Denies chest pain, Denies syncope, Denies edema, Denies irregular heart rhythm, Denies lightheadedness and Denies dyspnea Resp Denies cough and Denies dyspnea GI Denies abdominal pain, Denies constipation, Denies dysphagia, Denies diarrhea, Denies nausea, Denies odynophagia and Denies vomiting Reports no additional complaints Musc Reports no additional complaints and Denies abnormal gait Skin/Breast Reports system reviewed and no additional complaints, except as documented Neuro Denies Abnormal speech present, Denies abnormal gait, Denies dizziness, Denies syncope and Reports headache(s) (on and off) Psych Reports no additional complaints Physical exam (Primary Care) Vital Signs: Last Vital Signs Pulse 82 07/23/25 13:58 Resp 18 07/23/25 13:58 BP 148/82 H 07/23/25 13:58 Pulse Ox 100 07/23/25 13:58 Oxygen Delivery Method Room Air 07/23/25 13:58 BMI result Body Mass Index 33.2 Tobacco/Smoking Status: Tobacco use Status Tobacco use date assessed 07/23/25 07/23/25 14:11 Patient Tobacco Use Status Never used Tobacco 07/23/25 14:11 Tobacco use type Cigarette 07/23/25 14:11 e-Cigarette/Vaping Use Never Used 07/23/25 14:11 Thrive Assessment: Date of Thrive Assessment Date Thrive assessed 07/23/25 07/23/25 14:11 Currently or been in a relationship where the following occur: No concerns reported Const General: healthy appearing, no acute distress, alert and awake Nutritional Appearance: well nourished Orientation/consciousness: oriented to person, oriented to place and oriented to time HENRI General nose exam: Normal nasal mucous membranes and turbinates present Eyes Conjunctivae: conjunctivae normal Sclerae: sclerae normal Neck Neck: Yes no lymphadenopathy and Yes no JVD Thyroid: Thyroid normal Carotids: no bruits Resp Effort & Inspection: normal respiratory effort and not tachypneic Auscultation: no crackles, no rales, no rhonchi and no wheezes Cardio Rate: regular rate Rhythm: regular rhythm Heart sounds: no murmurs and normal S1 and S2 GI Palpation (GI): Soft to palpation, nontender, no hepatomegaly and no splenomegaly Auscultation: normal bowel sounds Neuro General: oriented to person, oriented to place and oriented to time Speech: No Abnormal speech present Gait exam (Neuro): Normal gait present Motor exam (neuro): no tremor noted Extrem Right upper extremity: full ROM Left upper extremity: full ROM Right lower extremity: full ROM; no edema Left lower extremity: full ROM; no edema Coding Level of Care Code Est Pt Level 3 (35422) Diagnoses Hypertension, unspecified type I10 Hypertension type: unspecified Migraine without aura and without status migrainosus, not intractable G43.009 Migraine type: without aura Status migrainosus presence: without status migrainosus Intractability: not intractable Family history of heart disease Z82.49 Time Spent (min) 26 Assessment & Plan Assessment & Plan (1) High blood pressure: Code(s): I10 - Essential (primary) hypertension Category: Medical Qualifiers: Hypertension type: unspecified Qualified Code(s): I10 - Essential (primary) hypertension Plan: Blood pressure 148/82, rechecked blood pressures with similar readings. Current treatment lisinopril 10 mg daily. Reinforced low-salt diet and activity as tolerated. Order change to lisinopril-hydrochlorothiazide 10-12.5 mg daily. Return in 2 weeks for blood pressure check with nurse. (2) Migraines: Code(s): G43.909 - Migraine, unspecified, not intractable, without status migrainosus Category: Medical Qualifiers: Migraine type: without aura Status migrainosus presence: without status migrainosus Intractability: not intractable Qualified Code(s): G43.009 - Migraine without aura, not intractable, without status migrainosus Plan: Patient reports that her headaches are purely hormonal. Fluctuates with the weather and during her menses. Continue sumatriptan succinate 25 mg 2-4 hours p.r.n. as needed. Maintain adequate fluid hydration. Encouraged magnesium oxide 400 mg at bedtime and vitamin B2 400 mg daily OTC (3) Family history of heart disease: Code(s): Z82.49 - Family history of ischemic heart disease and other diseases of the circulatory system Category: Medical Plan: Stress test was ordered on previous visit that showed no ischemia or cardiac abnormalities with exertion. Plan Patient to return in 3 months Orders: Orders Comprehensive [place]. Panel Fast Today G43.009 - Migraine without aura, not intractable, without status migrainosus, I10 - Essential (primary) hypertension, J45.909 - Unspecified asthma, uncomplicated UA CC w/rflx Micro + Cult Today G43.009 - Migraine without aura, not intractable, without status migrainosus, I10 - Essential (primary) hypertension, J45.909 - Unspecified asthma, uncomplicated TSH reflex Free T4 Today G43.009 - Migraine without aura, not intractable, without status migrainosus, I10 - Essential (primary) hypertension, J45.909 - Unspecified asthma, uncomplicated Medications: New lisinopril-hydrochlorothiazide 10-12.5 mg 1 tab PO DAILY 30 tabs 3RF Discontinued lisinopril Discontinued Reason: Duplicate 10 mg PO DAILY 90 tabs 3RF
[2025-07-23 13:58] VITALS: BP 148/82; PULSE 82; RESP 18; O2SAT 100; BMI 33.2
== END 2025-07-23 15:52 | disposition home or self-care (01) ==
LOC: HO.HMCH 13:56
DX: I10 Essential (primary) hypertension (principal); G43.009 Migraine without aura, not intractable, without status migrainosus; Z82.49 Family history of ischemic heart disease and other diseases of the circulatory system